=== PATIENT | male | born 1990 | race Caucasian/White ===

== ENCOUNTER 2020-12-25 10:01 | Emergency (ER) | payer OTHER ==
[2020-12-25] MEDS ORDERED: AUGMENTIN 875-1 EACH PO (12:20)
== END 2020-12-25 12:41 | disposition home or self-care (01) ==
LOC: FER 10:01
DX: S60.452A Superficial foreign body of right middle finger, initial encounter (principal); Z86.14 Personal history of Methicillin resistant Staphylococcus aureus infection; Z88.2 Allergy status to sulfonamides; W45.8XXA Other foreign body or object entering through skin, initial encounter; Y92.009 Unspecified place in unspecified non-institutional (private) residence as the place of occurrence of the external cause; Z23 Encounter for immunization
CPT/HCPCS: 73140; 90471; 90715; J2270